=== PATIENT | male | born 2000 | race Caucasian/White ===

== ENCOUNTER 2023-02-27 15:00 | Emergency (ER) | payer BC ==
[~2023-02-27] VITALS: Ht 162.6 cm; Wt 63.0 kg
[2023-02-27 15:17] VITALS: O2SAT 95
[2023-02-27] MEDS ORDERED: SODIUM CHLORIDE 0.9% 1,000 ML IV ONE (16:00)
[2023-02-27] MEDS ORDERED: LORAZEPAM 2MG/ML CPJ IV ONE (16:00)
[2023-02-27] MEDS ORDERED: LEVETIRACETAM 500MG PREMIX 100 ML IV ONE ×2 (16:00)
[2023-02-27 16:32] LABS: BASOPHILS % 0.3 % (0.0-2.0); EOSINOPHILS % 0.6 % (0.0-5.0); HEMATOCRIT. 42.1 % (42.0-52.0); HEMOGLOBIN. 14.7 g/dL (14.0-18.0); MEAN CORPUSCULAR HEMOGLOBIN 31.8 pg (28.0-32.0); MEAN CORPUSCULAR VOLUME 91.1 fL (80.0-94.0); MEAN PLATELET VOLUME 6.5 fl (7.4-10.4); MONOCYTES % 4.8 % (2.0-8.0); NEUTROPHILS % 74.3 % (40.0-76.0); PLATELET 325 x1000/uL (130-400); RED BLOOD CELL COUNT 4.62 mill/uL (4.7-6.1); RED CELL DISTRIBUTION WIDTH 13.4 % (11.6-14.6)
[2023-02-27 16:40] VITALS: BP 134/64; PULSE 72; RESP 16; TEMP 98.6
[2023-02-27 17:02] LABS: CHLORIDE 108 mEq/L (98-107)
[2023-02-27 17:11] LABS: ETHANOL BLOOD < 10 mg/dL (-10)
== END 2023-02-27 16:51 | disposition left against medical advice (07) ==
LOC: ER 15:00
DX: R56.9 Unspecified convulsions (principal)
CPT/HCPCS: 80053; 80320; 85025; 36415; 99283; J7030; G0480